=== PATIENT | female | born 1975 | race Two or more races ===

== ENCOUNTER 2024-06-05 18:37 | Emergency (ER) | payer OTHER ==
[~2024-06-05] VITALS: Ht 175.3 cm; Wt 92.0 kg
[2024-06-05 18:48] VITALS: BP_DIAS 76; TEMP 98.1
[2024-06-05 19:03] LABS: APPEARANCE,URINE HAZY (CLEAR); BILIRUBIN,URINE NEGATIVE (NEGATIVE); COLOR,URINE COLORLESS (YELLOW); GLUCOSE, URINE (UA) NEGATIVE (NEGATIVE); KETONES,URINE NEGATIVE (NEGATIVE); LEUKOCYTE ESTERASE ,URINE LARGE (NEGATIVE); NITRATE,URINE NEGATIVE (NEGATIVE); OCCULT BLOOD,URINE LARGE (NEGATIVE); PH,URINE 5.5 (5.0-8.0); PROTEIN,URINE NEGATIVE (NEGATIVE); SPECIFIC GRAVITIY, URINE 1.011 (1.003-1.030); UROBILINOGEN,URINE <=1.0 mg/dL (<=1.0)
[2024-06-05 19:14] LABS: BACTERIA,URINE Few /HPF (None Seen)
[2024-06-05 19:15] LABS: SQUAMOUS EPITHELIAL CELL,UR Few /LPF (None Seen)
[2024-06-05] MEDS ORDERED: CEPH-558 PO (22:03)
[2024-06-05] MEDS ORDERED: METH-812 PO (22:03)
[2024-06-05] MEDS ORDERED: IBUP-1492 PO (22:03)
[2024-06-05] MEDS: CEPHALEXIN MONOHYDRATE 500 MG CAPSULE PO ONE (22:09)
[2024-06-05] MEDS: KETOROLAC TROMETHAMINE 30 MG/ML VIAL IM ONE (22:10)
[2024-06-05 22:25] VITALS: BP_SYST 135; PULSE 69; RESP 20
== END 2024-06-05 22:35 | disposition home or self-care (01) ==
LOC: EMS 18:37
DX: S39.012A Strain of muscle, fascia and tendon of lower back, initial encounter (principal); N39.0 Urinary tract infection, site not specified; X58.XXXA Exposure to other specified factors, initial encounter; Y93.89 Activity, other specified; Y92.89 Other specified places as the place of occurrence of the external cause; Y99.8 Other external cause status
CPT/HCPCS: 99283; 81001; 87086; 87186; 96372; J1885

== ENCOUNTER 2024-10-19 03:36 | Emergency (ER) | payer OTHER ==
[~2024-10-19] VITALS: Ht 175.3 cm; Wt 93.2 kg
[~2024-10-19 03:36] MED LIST: CEPH-558 PO; IBUP-1492 PO; METH-812 PO
[2024-10-19 03:41] VITALS: BP 142/88; PULSE 85; RESP 20; O2SAT 97
[2024-10-19 04:06] LABS: COVID AG,FIA SOURCE NASAL SWAB
[2024-10-19 04:30] LABS: SARS-COV2 (COVID) ANTIGEN,FIA Negative (Negative)
[2024-10-19 04:32] LABS: INFLUENZA TYPE A NEGATIVE FOR TYPE A (NEGATIVE); INFLUENZA TYPE B NEGATIVE FOR TYPE B (NEGATIVE)
[2024-10-19 05:59] VITALS: TEMP 99
[2024-10-19] MEDS ORDERED: BENZ-227 PO (06:10)
[2024-10-19] MEDS ORDERED: AZIT250T9 PO (06:11)
== END 2024-10-19 06:17 | disposition home or self-care (01) ==
LOC: EMS 03:37
DX: J06.9 Acute upper respiratory infection, unspecified (principal); B97.89 Other viral agents as the cause of diseases classified elsewhere; I10 Essential (primary) hypertension; Z20.822 Contact with and (suspected) exposure to COVID-19
CPT/HCPCS: 87804; 99283

== ENCOUNTER 2024-10-25 09:33 | Emergency (ER) | payer OTHER ==
[~2024-10-25] VITALS: Ht 177.8 cm; Wt 86.4 kg
[~2024-10-25 09:33] MED LIST changes: +AZIT250T9 PO; +BENZ-227 PO
[2024-10-25 09:46] VITALS: TEMP 98.2
[2024-10-25 10:13] LABS: COVID AG,FIA SOURCE NASAL SWAB
[2024-10-25 10:50] LABS: INFLUENZA TYPE A NEGATIVE FOR TYPE A (NEGATIVE); INFLUENZA TYPE B NEGATIVE FOR TYPE B (NEGATIVE); SARS-COV2 (COVID) ANTIGEN,FIA Negative (Negative)
[2024-10-25] MEDS: PROCHLORPERAZINE EDISYLATE 5 MG/ML 2 ML VIAL IVP ONE (11:59)
[2024-10-25] MEDS: SODIUM CHLORIDE 0.9% 1,000 ML IV ONE (12:00)
[2024-10-25] MEDS: ACETAMINOPHEN 325 MG TABLET PO ONE (12:00)
[2024-10-25] MEDS ORDERED: IOHEXOL 350 MG/ML 100 ML VIAL ONE (12:27)
[2024-10-25] MEDS ORDERED: 0.9% SODIUM CHLORIDE 10 ML SYRINGE IVP ONE (12:27)
[2024-10-25] MEDS ORDERED: SODIUM CHLORIDE 0.9% 0 ML ONE (12:27)
[2024-10-25 12:31] LABS: BASOPHILS % (AUTO) 1.8 % (0.0-2.0); HEMATOCRIT 38.7 % (36-46); HEMOGLOBIN 13.1 g/dL (12.0-16.0); LYMPHOCYTES # (AUTO) 1.8 K/uL (1.0-4.8); LYMPHOCYTES % (AUTO) 23.5 % (22.0-44.0); MEAN CORPUSCULAR HGB CONC 33.8 G/dL (31.0-37.0); MEAN CORPUSCULAR VOLUME 92 fL (80-100); MONOCYTES # (AUTO) 0.8 K/uL (0.1-1.0); MONOCYTES % (AUTO) 11.2 % (2.0-9.0); NEUTROPHILS # (AUTO) 4.6 K/uL (1.8-7.7); NEUTROPHILS % (AUTO) 61.5 % (40.0-70.0); PLATELET COUNT (AUTO) 313 K/uL (150-450); RED BLOOD CELL COUNT(AUTO) 4.23 MIL/uL (4.00-5.20); RED CELL DISTRIBUTION WIDTH 13.1 % (11.5-14.5); WHITE BLOOD COUNT (AUTO) 7.5 K/uL (4.5-11.0)
[2024-10-25 12:43] LABS: CARBON DIOXIDE 26 mmol/L (22-29)
[2024-10-25 12:57] LABS: ALANINE AMINOTRANSFERASE 22 U/L (12-78); ALBUMIN 3.7 g/dL (3.4-5.0); ALKALINE PHOSPHATASE 72 U/L (46-116); ANION GAP 11 mmol/L (8-16); ASPARTATE AMINOTRANSFERASE 12 U/L (15-37); BILIRUBIN,TOTAL 0.5 mg/dL (0.1-1.0); CALCIUM, TOTAL 9.1 mg/dL (8.8-10.5); CHLORIDE 101 mmol/L (98-107); CREATININE 0.75 mg/dL (0.60-1.30); GLOMERULAR FILTR. RATE CALC > 60 mL/min (>60); GLUCOSE,RANDOM 83 mg/dL (70-110); LIPASE 29 U/L (16-77); POTASSIUM 3.5 mmol/L (3.5-5.1); SODIUM SERUM 138 mmol/L (136-145); TOTAL PROTEIN, SERUM 8.3 g/dL (6.4-8.2); UREA NITROGEN, BLOOD 16 mg/dL (7-18)
[2024-10-25] MEDS: MAGNESIUM SULFATE 1 GM in DEXTROSE 5%-WATER 50 ML IV ONE (13:08)
[2024-10-25 13:57] LABS: APPEARANCE,URINE HAZY (CLEAR); BILIRUBIN,URINE NEGATIVE (NEGATIVE); COLOR,URINE YELLOW (YELLOW); GLUCOSE, URINE (UA) NEGATIVE (NEGATIVE); KETONES,URINE 40-60 mg/dL (NEGATIVE); LEUKOCYTE ESTERASE ,URINE LARGE (NEGATIVE); NITRATE,URINE NEGATIVE (NEGATIVE); OCCULT BLOOD,URINE LARGE (NEGATIVE); PROTEIN,URINE 30-70 mg/dL (NEGATIVE); SPECIFIC GRAVITIY, URINE 1.021 (1.003-1.030); UROBILINOGEN,URINE <=1.0 mg/dL (<=1.0)
[2024-10-25 14:19] LABS: BACTERIA,URINE Many /HPF (None Seen); SQUAMOUS EPITHELIAL CELL,UR Few /LPF (None Seen)
[2024-10-25] MEDS ORDERED: CEFD300C18 PO (14:35)
[2024-10-25] MEDS ORDERED: ONDA-243 PO (14:36)
[2024-10-25] MEDS: CefTRIAXone 1 GM/DEXTROSE 50 ML IV ONE (14:53)
[2024-10-25 15:28] VITALS: BP 133/77; PULSE 64; RESP 18; O2SAT 99
== END 2024-10-25 15:38 | disposition home or self-care (01) ==
LOC: EMS 09:33
DX: N12 Tubulo-interstitial nephritis, not specified as acute or chronic (principal); R10.84 Generalized abdominal pain; R51.9 Headache, unspecified; R11.2 Nausea with vomiting, unspecified; I10 Essential (primary) hypertension; Z20.822 Contact with and (suspected) exposure to COVID-19
CPT/HCPCS: 99284; 96365; 96367; 96361; 96366; 96375; 87426; 80048; 80076; 81001; 83690; 84703; 85025; 87077; 87086; 87186; 87804; 36415; J0696; J0780; J7060; J3475; J7030; J7050